=== PATIENT | male | born 1985 | race Caucasian/White ===

== ENCOUNTER 2020-10-25 10:14 | Inpatient (IN) ==
[2020-10-25] MEDS ORDERED: ALBUT/IPRATROP 3MG/0.5MG NEB 3 ML VIAL NEB STA (11:30)
--- NOTE | 2020-10-25 11:30 | XRay Report ---
SINGLE VIEW CHEST CLINICAL HISTORY: Atypical chest pain. Dyspnea FINDINGS: 2 AP, portable, upright chest radiographs are compared to chest x-ray and chest CT dated . The cardiomediastinal silhouette is unremarkable. The lungs appear hyperinflated, likely du e to good inspiratory result. No airspace consolidation or large pleural effusion is identified. No p neumothorax is seen. There are healed left posterior rib fractures. IMPRESSION: No active disease in the chest. ACT 112: Negative or not required by law. Electronically signed by: Ralph Linn M.D. 10/25/2020 11:28 AM
[2020-10-25 11:50] LABS: Basophils # (auto) 0.05 K/uL (0-0.2); Basophils % (auto) 0.6 %; Eosinophils # (auto) 0.02 K/uL (0-0.5); Eosinophils % (auto) 0.2 %; Hematocrit (blood only) 43.4 % (42-52); Hemoglobin 15.2 g/dL (14.0-18.0); Immature Granulocytes # (auto) 0.01 K/uL (0.00-0.02); Immature Granulocytes % (auto) 0.1 %; Lymphocytes # (auto) 2.35 K/uL (1.2-3.4); Mean Corpuscular Hemoglobin 30.6 pg (25-34); Mean Corpuscular Volume 87.5 fL (80-100); Mean Platelet Volume 10.4 fL (7.4-10.4); Monocytes # (auto) 0.38 K/uL (0.11-0.59); Monocytes % (auto) 4.4 %; Neutrophils # (auto) 5.89 K/uL (1.4-6.5); Neutrophils % (auto) 67.7 %; Platelet Count 269 K/uL (130-400); RDW Coefficient of Variation 12.4 % (11.5-14.5); RDW Standard Deviation 39.9 fL (36.4-46.3); Red Blood Count 4.96 M/uL (4.7-6.1)
[2020-10-25 12:17] LABS: Albumin Level 4.9 gm/dl (3.4-5.0); BUN Creatinine Ratio 9.7 (10-20); Calcium 9.2 mg/dl (8.5-10.1); Creatinine Clr Calc Pharmacy 90.9 ml/min; Est GFR (African American) 95.7 ml/min; Est GFR (Non-African American) 82.6 ml/min; Potassium 3.5 mmol/L (3.5-5.1)
[2020-10-25 12:45] LABS: Albumin Globulin Ratio 1.4 (0.9-2); Bilirubin,Total 0.8 mg/dl (0.2-1); Globulin 3.5 gm/dl (2.5-4.0); Total Protein 8.4 gm/dl (6.4-8.2); Troponin I 0.367 ng/ml (0-0.045)
[2020-10-25 12:55] LABS: Partial Thromboplastin Time 26.2 Seconds (21.0-31.0); Prothrombin Time 10.6 Seconds (9.0-12.0)
[2020-10-25] MEDS ORDERED: ASPIRIN CHEW 324 MG PO STA (13:03)
[2020-10-25] MEDS ORDERED: NICOTINE 14 MG/24 HR PATCH TD STA (13:28)
--- NOTE | 2020-10-25 13:47 | History & Physical Report ---
Date of Service October 25, 2020 Assessment & Plan (1) Elevated troponin I level: Plan: Elevated troponin- The patient will be admitted to telemetry for serial cardiac enzymes, serial EKG's, cardiac rhythm monitoring and a 2-D echocardiogram with Dopplers. Troponin 0.367 upon admission Received aspirin 324 mg in the ED Cardiology consult pending (2) Tobacco abuse: Plan: Cessation counseling (3) Methadone dependence: Plan: Awaiting pharmacy verification of dosing of methadone 82 mg daily History of Present Illness Chief Complaint: The patient presents to the emergency department with acute onset of chest tightness rating to his left arm while at work this morning Primary Care Provider: NO PCP The patient is a 35-year-old male with a past medical history including methadone dependence, and tobacco abuse, who presents to the emergency department with acute development of chest tightness rating 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 In the emergency department, work-up included a normal chest x-ray, and EKG with normal sinus rhythm at [address]-T changes, and a troponin of 0.367. Interventions in the emergency department included aspirin 324 mg p.o. x1, and a DuoNeb Allergies Allergy/AdvReac Type Severity Reaction Status Date / Time No Known Allergies Allergy Unverified 10/25/20 11:39 Home Medications Medication Instructions Recorded Confirmed Type Jet-Alert 1 cap PO UD PRN 10/25/20 10/25/20 History methadone 10 mg/mL oral concentrate 82 mg PO DAILY 10/25/20 10/25/20 History Past Med/Surg History Social History Smoking Status: Current every day smoker Tobacco Type: Cigarettes Feels Safe at Home: Yes Review of Systems Review of Systems: The patient denies chest pain, palpitations, cough, lower extremity swelling, sore throat, fevers, chills, sweats, weight change, fatigue, nausea, vomiting, diarrhea , constipation, abdominal pain, pelvic pain, blood in urine or stool, dysuria, urinary frequency or urgency, lightheadedness, dizziness, headache, memory loss, loss of consciousness, rash, abnormal bruising or bleeding, imbalance, focal or generalized weakness, numbness or tingling in right arm or bilateral legs, generalized arthralgias or myalgias, back or neck pain, or night sweats. The review of systems is otherwise negative other than for that already noted above, and at least 10 systems have been reviewed. Physical Exam Physical Exam: The patient is awake, alert and oriented 3, well developed and well nourished, normocephalic and atraumatic, lying in bed and in no acute distress. HEENT--PERRL, EOMI, mucous membranes and oropharynx dry. Neck--supple. No JVD. No bruits. Thyroid normal, trachea midline, no adenopat hy. Heart--normal S1 and S2. No murmurs, rubs or gallops. Lungs--clear bilaterally, no respiratory distress, no accessory muscle use. Abdomen--normal bowel sounds and soft. Nontender. Nondistended, no hernias or masses, no organomegaly. Extremities--no cyanosis or clubbing. No edema. There are good distal pulses b/l. Dermatologic--normal skin turgor, normal color, no abnormal lymph nodes, no yarely h. Neurologic--cranial nerves II through XII grossly intact. Rheumatologic--normal range of motion. Psychiatric--normal affect. Results & Data Results & Data ([facility]) Vital Signs (Past 12 Hours) Vital Signs Temp Pulse Pulse Resp BP BP Pulse Ox 10/25/20 13:16 82 17 136/88 100 10/25/20 13:00 88 19 146/89 H 100 10/25/20 11:48 83 16 97 10/25/20 11:31 77 19 142/87 H 100 10/25/20 10:20 98.8 F 91 H 20 148/83 H 100 Laboratory Results Laboratory Results WBC 8.70 K/uL (4.8-10.8) 10/25/20 11:30 RBC 4.96 M/uL (4.7-6.1) 10/25/20 11:30 Hgb 15.2 g/dL (14.0-18.0) 10/25/20 11:30 Hct 43.4 % (42-52) 10/25/20 11:30 MCV 87.5 fL (80-100) 10/25/20 11:30 MCH 30.6 pg (25-34) 10/25/20 11:30 MCHC 35.0 g/dL (32-36) 10/25/20 11:30 RDW Std Deviation 39.9 fL (36.4-46.3) 10/25/20 11:30 RDW Coeff of Thais 12.4 % (11.5-14.5) 10/25/20 11:30 Plt Count 269 K/uL (130-400) 10/25/20 11:30 MPV 10.4 fL (7.4-10.4) 10/25/20 11:30 Immature Gran % (Auto) 0.1 % 10/25/20 11: Neut % (Auto) 67.7 % 10/25/20 11:30 Lymph % (Auto) 27.0 % 10/25/20 11:30 [place] % (Auto) 4.4 % 10/25/20 11:30 Eos % (Auto) 0.2 % 10/25/20 11:30 Baso % (Auto) 0.6 % 10/25/20 11: Neut # (Auto) 5.89 K/uL (1.4-6.5) 10/25/20 11:30 Lymph # (Auto) 2.35 K/uL (1.2-3.4) 10/25/20 11:30 [place] # (Auto) 0.38 K/uL (0.11-0.59) 10/25/20 11:30 Eos # (Auto) 0.02 K/uL (0-0.5) 10/25/20 11:30 Baso # (Auto) 0.05 K/uL (0-0.2) 10/25/20 11: Immature Gran # (Auto) 0.01 K/uL (0.00-0.02) 10/25/20 11:30 PT 10.6 Seconds (9.0-12.0) 10/25/20 12:32 INR 1.0 (0.9-1.1) 10/25/20 12:32 APTT 26.2 Seconds (21.0-31.0) 10/25/20 12:32 PTT Ratio 1.0 10/25/20 12:32 Sodium 137 mmol/L (136-145) 10/25/20 11:30 Potassium 3.5 mmol/L (3.5-5.1) 10/25/20 11:30 Chloride 107 mmol/L (98-107) 10/25/20 11:30 Carbon Dioxide 28 mmol/L (21-32) 10/25/20 11:30 Anion Gap 2.0 (3-11) L 10/25/20 11:30 BUN 11 mg/dl (7-18) 10/25/20 11:30 Creatinine 1.15 mg/dl (0.6-1.4) 10/25/20 11:30 Est Cr Clr Drug Dosing 90.9 ml/min 10/25/20 11:30 Est GFR ( Amer) 95.7 ml/min 10/25/20 11:30 Est GFR (Non-Af Amer) 82.6 ml/min 10/25/20 11:30 BUN/Creatinine Ratio 9.7 (10-20) L 10/25/20 11:30 Glucose 85 mg/dl (70-99) 10/25/20 11:30 Calcium 9.2 mg/dl (8.5-10.1) 10/25/20 11:30 Total Bilirubin 0.8 mg/dl (0.2-1) 10/25/20 11:30 AST 28 U/L (15-37) 10/25/20 11:30 ALT 35 U/L (12-78) 10/25/20 11:30 Alkaline Phosphatase 69 U/L (45-117) 10/25/20 11:30 Troponin I 0.367 ng/ml (0-0.045) H* 10/25/20 11:30 Total Protein 8.4 gm/dl (6.4-8.2) H 10/25/20 11:30 Albumin 4.9 gm/dl (3.4-5.0) 10/25/20 11:30 Globulin 3.5 gm/dl (2.5-4.0) 10/25/20 11:30 Albumin/Globulin Ratio 1.4 (0.9-2) 10/25/20 11:30 COVID-19 Eval Order Covid19 at [facility] 10/25/20 13:00 Impressions Chest X-Ray 10/25/20 10:23 SINGLE VIEW CHEST CLINICAL HISTORY: Atypical chest pain. Dyspnea FINDINGS: 2 AP, portable, upright chest radiographs are compared to chest x-ray and chest CT dated 03/06/2016. The cardiomediastinal silhouette is unremarkable. The lungs appear hyperinflated, likely due to good inspiratory result. No airspace consolidation or large pleural effusion is identified. No pneumothorax is seen. There are healed left posterior rib fractures. IMPRESSION: No active disease in the chest. ACT 112: Negative or not required by law. Electronically signed by: Ralph Linn M.D. 10/25/2020 11:28 AM ECG Additional Comments: HEIDI MOCTEZUMA ID:[id number] 25-OCT-2020 10:28:38 [facility]- EDSTAT ROUTINE RETRIEVAL Normal sinus rhythm Normal ECG When compared with ECG of 06-MAR-2016 10:47, No significant change was found 25mm/s 10mm/mV 150Hz 9.0.9 12SL 241 FARHEEN: 15 Referred by: ED Unconfirmed Vent. rate 91 BPM FL interval 142 ms QRS duration 104 ms QT/QTc 388/477 ms P-R-T axes 68 55 55 1985 (35 yr) Male 71in Room: Loc:15 Supervisory Historian:ADDY Duran in Code Status & VTE Plan Code Status Full code VTE Prophylaxis Plan VTE Prophylaxis will be ordered: Yes PG Care Time/CCT Total # of Minutes Spent Total Time Spent with Patient: Total time spent is greater than 50% in co ordination of care (as documented) at patient's floor/unit and/or counseling patient: Coding Level of Care Code 42926 Initial Inpt Care Lvl 2 Diagnoses Elevated troponin I level R77.8 Tobacco abuse Z72.0 Methadone dependence F11.20
[2020-10-25] MEDS ORDERED: NITROGLYCERIN SL 0.4 MG/TAB TAB SL PRN (15:19)
[2020-10-25] MEDS ORDERED: ACETAMINOPHEN 325 MG TAB PO PRN (15:19)
[2020-10-25] MEDS ORDERED: ONDANSETRON INJ 2 MG/ML 2 ML VIAL IV PRN (15:19)
--- NOTE | 2020-10-25 15:30 | Electrocardiogram Report ---
Test Reason : Blood Pressure : / mmHG Vent. Rate : 091 BPM Atrial Rate : 091 BPM P-R Int : 142 ms QRS Dur : 104 ms QT Int : 388 ms P-R-T Axes : 068 055 055 degrees QTc Int : 477 ms Normal sinus rhythm Possible old posterior infarct When compared with ECG of 06-MAR-2016 10:47, No significant change was found Confirmed by Kedar Alvarado ([id number]) on 10/25/2020 3:30:25 PM Referred By: ED Confirmed By:Pito Alvarado
[2020-10-25] MEDS: NSS + 20MEQ KCL 20 MEQ/1,000 ML BAG IV SCH (15:51)
--- NOTE | 2020-10-25 17:18 | Emergency Department Note ---
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 He was given a DuoNeb treatment as it was concerned that this may be pulmonary related from the chemical. His ECG was normal. His CBC and chemistry panel was unremarkable. Chest x-ray was negative. On reassessment the patient was feeling well. He had no pain or discomfort and was breathing normally. Vital signs were stable. Unfortunately patient's troponin did come back elevated. The patient will need further management in the hospital. The patient was educated. After discussion the patient did agree for admission. Consultation was made with Dr. Duane Hendrickson of the [facility] service. Patient was evaluated in the ER for further management. Patient was given aspirin. I did consult with cardiology, Dr. Alvarado and he agreed with the aspirin and medical work-up. Triage Nursing notes reviewed and agree them. Vital Signs: reviewed and remarkable for no significant abnormalities Differential diagnosis: Cardiac ischemia, aortic dissection, pulmonary embolism, pneumothorax, pneumonia, pericarditis, myocarditis, esophageal rupture, GERD, cholecystitis, pancreatitis, m usculoskeletal, as well as other pathologies. Diagnostics interpreted by me: ECG:Rate:91 Rhythm:Normal sinus [place]:Normal QRS:Normal ST segements:No elevation or depression Other:No PACs or PVCs Cardiac Monitoring: Cardiac monitoring ordered by me: The patient was placed on continuous cardiac monitoring and observed. It revealed a normal sinus rhythm at 90 beats per minute without ectopy or evidence of dysrhythmia. Imaging studies: Chest x-ray. Findings: A chest x-ray was performed and revealed no pneumothorax, effusion, infiltrate, pulmonary edema, free air under the diaphragm, or wide mediastinum. Impression: No acute disease. HPI: The patient is a [age] year old male who presents to the Emergency Room with complaints of left-sided chest pain. 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 The patient also notes the fo llowing associated symptoms, left arm pain, mild shortness of breath. The patient has taken no medication for relieving factors. Current pain is rated as zero/10. Patient does note a family history of cardiac disease. Patient does smoke. Patient has no personal history of cardiac disease. Pt denies LOC, headache, fevers, chills, diaphoresis, visual changes, neck pain, nausea, vomiting, abdominal pain, back pain, melena, hematochezia, urinary symptoms, numbness, weakness, lymphadenopathy, rash, or other complaints. ROS: See above HPI for pertinent positives & negatives. A total of 10 systems reviewed and were otherwise negative. PAST MEDICAL HISTORY:See Below , methadone dependence PAST SURGICAL HISTORY:See Below, FAMILY HISTORY:See Below SOCIAL HISTORY:See Below, smoker HOME MEDICATIONS:See Below ALLERGIES:See Below VITALS:See Below PHYSICAL EXAMINATION: GENERAL: Awake, alert, well-appearing, in no distress HENT: Normocephalic, atraumatic. Oropharynx unremarkable. EYES: Normal conjunctiva. Sclera non-icteric. NECK: Inspection normal. Non-tender. Supple. No nuchal rigidity. FROM. No masses. RESPIRATORY: Clear to auscultation. No wheezes. No rales. Normal respiratory effort. CARDIAC: Normal rate. Normal rhythm. No murmurs. No rubs. Extremities warm and well perfused. Pulses equal. No JVD. GI: Soft, non-distended. No tenderness to palpation. No rebound or guarding. No masses. RECTAL: Deferred. MUSCULOSKELETAL: Atraumatic. Chest examination reveals no tenderness. The back is symmetrical on inspection without obvious abnormality. There is no CVA tenderness to palpation. No joint edema. LOWER EXTREMITIES: Calves are equal size bilaterally and non-tender. No edema. No discoloration. NEURO: Normal sensorium. No sensory or motor deficits noted. SKIN: No rash or jaundice noted. Travis Ho MD Past Med/Surg History Social History Smoking Status: Current every day smoker Tobacco Type: Cigarettes Second Hand Exposure: Yes; Hx Alcohol Use: No Hx Substance Use: Yes Last Used Substance Other:: 2 years Preferred Language: Salvadorean Communication Ability: Effective Terminal Operations Manager Required: No Beliefs That Will Affect Care: None Current Living Situation: Significant Other Current Living Situation Comment: apartment single floor, 3 steps to enter Feels Safe at Home: Yes Assistive Devices: None Allergies Allergies Allergy/AdvReac Type Severity Reaction Status Date / Time No Known Allergies Allergy Unverified 10/25/20 11:39 Home Meds Home Medications Medication Instructions Recorded Confirmed Jet-Alert 1 cap PO UD PRN 10/25/20 10/25/20 methadone 10 mg/mL oral concentrate 82 mg PO DAILY 10/25/20 10/25/20 Results & Data (ED) Vital Signs Vital Signs - 24 hr 10/25/20 10:20 10/25/20 11:31 10/25/20 11:48 Temperature 37.1 C Temperature Source Temporal Artery Scan Pulse Rate 91 H Pulse Rate [Right] 77 83 Pulse Rate from SpO2 Sensor Pulse Rhythm [Right] Regular Pulse Strength [Right] Normal Respiratory Rate 20 19 16 Respiratory Effort / Characteristics Non-Labored Non-Labored Non-Labored Spontaneous Respiratory Depth Normal Normal Respiratory Pattern Regular Blood Pressure 148/83 H Blood Pressure [Left Arm] 142/87 H Blood Pressure Mean 104 Blood Pressure Mean [Left Arm] 105 Blood Pressure Position [Left Arm] Lying Pulse Oximetry 100 100 97 Oxygen Delivery Method Room Air Room Air Room Air Sepsis Recent Fever Within 48 Hours No Sepsis New/Unexplained Change in Mental Status N/A Sepsis Action Taken by Nursing No Action Required 10/25/20 13:00 10/25/20 13:15 10/25/20 13:16 Temperature Temperature Source Pulse Rate 89 Pulse Rate [Right] 88 82 Pulse Rate from SpO2 Sensor 90 Pulse Rhythm [Right] Regular Regular Pulse Strength [Right] Normal Normal Respiratory Rate 19 21 17 Respiratory Effort / Characteristics Non-Labored Non-Labored Respiratory Depth Normal Normal Respiratory Pattern Regular Regular Blood Pressure 136/88 Blood Pressure [Left Arm] 146/89 H 136/88 Blood Pressure Mean 104 Blood Pressure Mean [Left Arm] 108 104 Blood Pressure Position [Left Arm] Sitting Sitting Pulse Oximetry 100 99 100 Oxygen Delivery Method Room Air Room Air Room Air Sepsis Recent Fever Within 48 Hours Sepsis New/Unexplained Change in Mental Status Sepsis Action Taken by Nursing 10/25/20 13:30 Temperature Temperature Source Pulse Rate 83 Pulse Rate [Right] Pulse Rate from SpO2 Sensor 84 Pulse Rhythm [Right] Pulse Strength [Right] Respiratory Rate 19 Respiratory Effort / Characteristics Respiratory Depth Respiratory Pattern Blood Pressure 130/87 Blood Pressure [Left Arm] Blood Pressure Mean 101 Blood Pressure Mean [Left Arm] Blood Pressure Position [Left Arm] Pulse Oximetry 99 Oxygen Delivery Method Room Air Sepsis Recent Fever Within 48 Hours Sepsis New/Unexplained Change in Mental Status Sepsis Action Taken by Nursing Laboratory Data Result diagrams: 10/25/20 11:30 10/25/20 11:30 Lab Results 10/25/20 10/25/20 10/25/20 Range/Units 11:30 11:30 12:32 WBC 8.70 (4.8-10.8) K/uL RBC 4.96 (4.7-6.1) M/uL Hgb 15.2 (14.0-18.0) g/dL Hct 43.4 (42-52) % MCV 87.5 (80-100) fL MCH 30.6 (25-34) pg MCHC 35.0 (32-36) g/dL RDW Std Deviation 39.9 (36.4-46.3) fL RDW Coeff of Thais 12.4 (11.5-14.5) % Plt Count 269 (130-400) K/uL MPV 10.4 (7.4-10.4) fL Immature Gran % (Auto) 0.1 % Neut % (Auto) 67.7 % Lymph % (Auto) 27.0 % [place] % (Auto) 4.4 % Eos % (Auto) 0.2 % Baso % (Auto) 0.6 % Neut # (Auto) 5.89 (1.4-6.5) K/uL Lymph # (Auto) 2.35 (1.2-3.4) K/uL [place] # (Auto) 0.38 (0.11-0.59) K/uL Eos # (Auto) 0.02 (0-0.5) K/uL Baso # (Auto) 0.05 (0-0.2) K/uL Immature Gran # (Auto) 0.01 (0.00-0.02) K/uL PT 10.6 (9.0-12.0) Seconds INR 1.0 (0.9-1.1) APTT 26.2 (21.0-31.0) Seconds PTT Ratio 1.0 Sodium 137 (136-145) mmol/L Potassium 3.5 (3.5-5.1) mmol/L Chloride 107 (98-107) mmol/L Carbon Dioxide 28 (21-32) mmol/L Anion Gap 2.0 L (3-11) BUN 11 (7-18) mg/dl Creatinine 1.15 (0.6-1.4) mg/dl Est Cr Clr Drug Dosing 90.9 ml/min Est GFR ( Amer) 95.7 ml/min Est GFR (Non-Af Amer) 82.6 ml/min BUN/Creatinine Ratio 9.7 L (10-20) Glucose 85 (70-99) mg/dl Calcium 9.2 (8.5-10.1) mg/dl Total Bilirubin 0.8 (0.2-1) mg/dl AST 28 (15-37) U/L ALT 35 (12-78) U/L Alkaline Phosphatase 69 (45-117) U/L Troponin I 0.367 H* (0-0.045) ng/ml Total Protein 8.4 H (6.4-8.2) gm/dl Albumin 4.9 (3.4-5.0) gm/dl Globulin 3.5 (2.5-4.0) gm/dl Albumin/Globulin Ratio 1.4 (0.9-2) COVID-19 Eval Order SARS-CoV-2 (PCR) (Negative) 10/25/20 10/25/20 Range/Units 13:00 13:00 WBC (4.8-10.8) K/uL RBC (4.7-6.1) M/uL Hgb (14.0-18.0) g/dL Hct (42-52) % MCV (80-100) fL MCH (25-34) pg MCHC (32-36) g/dL RDW Std Deviation (36.4-46.3) fL RDW Coeff of Thais (11.5-14.5) % Plt Count (130-400) K/uL MPV (7.4-10.4) fL Immature Gran % (Auto) % Neut % (Auto) % Lymph % (Auto) % [place] % (Auto) % Eos % (Auto) % Baso % (Auto) % Neut # (Auto) (1.4-6.5) K/uL Lymph # (Auto) (1.2-3.4) K/uL [place] # (Auto) (0.11-0.59) K/uL Eos # (Auto) (0-0.5) K/uL Baso # (Auto) (0-0.2) K/uL Immature Gran # (Auto) (0.00-0.02) K/uL PT (9.0-12.0) Seconds INR (0.9-1.1) APTT (21.0-31.0) Seconds PTT Ratio Sodium (136-145) mmol/L Potassium (3.5-5.1) mmol/L Chloride (98-107) mmol/L Carbon Dioxide (21-32) mmol/L Anion Gap (3-11) BUN (7-18) mg/dl Creatinine (0.6-1.4) mg/dl Est Cr Clr Drug Dosing ml/min Est GFR ( Amer) ml/min Est GFR (Non-Af Amer) ml/min BUN/Creatinine Ratio (10-20) Glucose (70-99) mg/dl Calcium (8.5-10.1) mg/dl Total Bilirubin (0.2-1) mg/dl AST (15-37) U/L ALT (12-78) U/L Alkaline Phosphatase (45-117) U/L Troponin I (0-0.045) ng/ml Total Protein (6.4-8.2) gm/dl Albumin (3.4-5.0) gm/dl Globulin (2.5-4.0) gm/dl Albumin/Globulin Ratio (0.9-2) COVID-19 Eval Order Cov[address]19 at [facility] SARS-CoV-2 (PCR) NEGATIVE (Negative) Administered Medications Potassium Chloride/Sodium Chloride (Normal Saline W/20 Meq Kcl) 20 meq in 1,000 mls @ 80 mls/hr IV .[id number] DANIEL Stop: 11/24/20 15:29 Last Admin: 10/25/20 15:51 Dose: 80 mls/hr Documented by: [id number] Discontinued Medications Albuterol (Albut/Ipratrop 3mg/0.5mg Neb 3 Ml Vial) 3 ml NEB NOW STA Stop: 10/25/20 11:31 Last Admin: 10/25/20 11:47 Dose: 3 ml Documented by: [id number] Aspirin (Aspirin Chew 324 Mg) 324 mg PO NOW STA Stop: 10/25/20 13:04 Last Admin: 10/25/20 13:13 Dose: 324 mg Documented by: [id number] Nicotine (Nicotine 14 Mg/24 Hr Patch) 14 mg TD NOW STA Stop: 10/25/20 13:29 Last Admin: 10/25/20 13:40 Dose: 14 mg Documented by: [id number] Imaging Data Radiologist's Impression: Chest X-Ray 10/25/20 10:23 SINGLE VIEW CHEST CLINICAL HISTORY: Atypical chest pain. Dyspnea FINDINGS: 2 AP, portable, upright chest radiographs are compared to chest x-ray and chest CT dated 03/06/2016. The cardiomediastinal silhouette is unremarkable. The lungs appear hyperinflated, likely due to good inspiratory result. No airspace consolidation or large pleural effusion is identified. No pneumothorax is seen. There are healed left posterior rib fractures. IMPRESSION: No active disease in the chest. ACT 112: Negative or not required by law. Electronically signed by: Ralph Linn M.D. 10/25/2020 11:28 AM Discharge Plan Visit Data Chief Complaint: Shortness of Breath/Dyspnea Stated Complaint: SOB, PAIN IN L ARM, CHEST TIGHTNESS ED Provider: Travis Ho Discharge Problem: Left-sided chest pain, Elevated troponin Patient Disposition: Admitted As Inpatient Discharge Instructions Interventions: ED Discharge Assessment Last Done: 10/25/20 14:52
--- NOTE | 2020-10-25 17:42 | XCELERA ---
[id number]
[2020-10-25] MEDS ORDERED: ENOXAPARIN 80 MG/0.8 ML SYR SQ ONE (18:02)
[2020-10-25] MEDS ORDERED: CLOPIDOGREL BISULFATE 300 MG TAB PO ONE (18:06)
[2020-10-26] MEDS: NSS + 20MEQ KCL 20 MEQ/1,000 ML BAG IV SCH ×2 (04:26→17:35)
[2020-10-26 07:59] LABS: Basophils # (auto) 0.03 K/uL (0-0.2); Basophils % (auto) 0.5 %; Hematocrit (blood only) 39.1 % (42-52); Hemoglobin 13.7 g/dL (14.0-18.0); Immature Granulocytes # (auto) 0.01 K/uL (0.00-0.02); Immature Granulocytes % (auto) 0.2 %; Lymphocytes # (auto) 1.63 K/uL (1.2-3.4); Lymphocytes % (auto) 27.9 %; Mean Corpuscular Hemoglobin 30.9 pg (25-34); Mean Corpuscular Volume 88.1 fL (80-100); Monocytes # (auto) 0.34 K/uL (0.11-0.59); Monocytes % (auto) 5.8 %; Neutrophils # (auto) 3.84 K/uL (1.4-6.5); Neutrophils % (auto) 65.6 %; Platelet Count 239 K/uL (130-400); RDW Coefficient of Variation 12.3 % (11.5-14.5); RDW Standard Deviation 39.6 fL (36.4-46.3); Red Blood Count 4.44 M/uL (4.7-6.1); White Blood Count 5.85 K/uL (4.8-10.8)
--- NOTE | 2020-10-26 08:01 | Hospitalist Progress Note ---
Date of Service October 26, 2020 Assessment & Plan (1) Elevated troponin I level: Plan: Chest pain associated with pain in relation subsequently found to have a elevated troponin- Troponin 0.367 upon admission it peaked at 3.16 and reduced at 1.41 Received aspirin 324 mg in the ED Cardiology performed left heart cath with nonocclusive disease heparin was initiated prior to catheterization due to the rising troponin this was quickly discontinued. Patient currently with pending CT angiography to look for pulmonary [place] and aortic disease there are case reports that inhaling propellants may be associated with n stemi, although the case reports typically were with pts who had chronically abused this habit (2) Tobacco abuse: Plan: Cessation counseling, nicotine patch offered (3) Methadone dependence: Plan: Awaiting pharmacy verification of dosing of methadone 82 mg daily toxicology screen is only positive for methadone Admission and Anticipated Discharge Date Admission Date: October 25, 2020 Subjective Patient is having no additional chest pains for [place] cardiac cath today which was negative for occlusive disease pending CT the scan for PE and aortic changes Review of Systems Review of Systems: Review of systems is unremarkable for chest pain Mild distress and fatigue no headache, no visual changes no speech or swallowing issues no chest pain, pressure or palpitations no shortness of breath, cough or wheezes no abdominal pain, nausea or vomiting, diarrhea or constipation no dysuria, hematuria or frequency no focal joint pain or swelling no back pain, CVA tenderness or radicular pain no bruising, bleeding or rashes no focal signs of weakness or numbness or altered sensation no complaints of anxiety or depression.. Physical Exam Physical Exam: The patient appeared well nourished and normally developed. Vital signs as documented. Head exam is normocephalic atraumatic Neck is without JVD, thyromegaly, or carotid bruits. Lungs are clear to auscultation, no focal loss of breath sounds Cardiac exam, Rhythm is regular.. No murmurs, rubs or gallops. Abdominal exam reveals normal bowel sounds, soft non tender, no masses Extremities are nonedematous and both pedal pulses are present Neurologic exam is alert and oriented, no focal loss of strength or sensation Skin is without bruises or rashes Psychologically is without concerns for anxiety or depression Results & Data Results & Data ([facility]) Vital Signs (Past 12 Hours) Vital Signs Temp Pulse Pulse Resp BP Pulse Ox 10/26/20 07:27 76 10/26/20 03:35 98.1 F 92 H 16 124/78 98 10/25/20 23:53 98.4 F 87 12 117/84 97 10/25/20 22:20 73 PG Care Time/CCT Total # of Minutes Spent Total Time Spent with Patient: Total time spent is greater than 50% in coordination of care (as documented) at patient's floor/unit and/or counseling patient: Coding Level of Care Code 12226 Subseq Hosp Care Lvl 3 Diagnoses Elevated troponin I level R77.8 Tobacco abuse Z72.0 Methadone dependence F11.20
[2020-10-26] MEDS: CLOPIDOGREL BISULFATE 75 MG TAB PO SCH (08:22)
[2020-10-26] MEDS: METHADONE ORAL SOLN 2 MG/ML PO SCH (08:22)
[2020-10-26] MEDS: METHADONE PO SCH (08:23)
[2020-10-26 08:30] LABS: Albumin Level 3.8 gm/dl (3.4-5.0); BUN Creatinine Ratio 10.7 (10-20); Calcium 8.8 mg/dl (8.5-10.1); Creatinine Clr Calc Pharmacy 115.6 ml/min; Est GFR (African American) 130.5 ml/min; Est GFR (Non-African American) 112.6 ml/min; Magnesium 1.7 mg/dl (1.8-2.4); Potassium 3.9 mmol/L (3.5-5.1)
[2020-10-26 08:39] LABS: Albumin Globulin Ratio 1.2 (0.9-2); Bilirubin,Total 1.2 mg/dl (0.2-1); Globulin 3.2 gm/dl (2.5-4.0)
[2020-10-26] MEDS ORDERED: Heparin IV Adult Wt-Based Standard WITH Bolus Protocol IV STA (10:21)
[2020-10-26] MEDS ORDERED: HEPARIN 25000 UNIT/500 ML D5W IV ONE (10:30)
[2020-10-26] MEDS ORDERED: HEPARIN SOD (PORCINE) 1000 UNIT/ML IV STA (10:32)
[2020-10-26] MEDS ORDERED: HEPARIN SODIUM/DEXTROSE 25,000 UNITS/500 ML BAG IV SCH (10:45)
[2020-10-26 11:06] LABS: Chol HDL Ratio 6; Cholesterol 181 mg/dl (0-200); HDL Cholesterol 29 mg/dl; LDL Cholesterol Calculated 130 mg/dl; Triglycerides 108 mg/dl (0-150); VLDL Cholesterol 22 mg/dl
[2020-10-26 12:27] LABS: Amphetamines+Metham, Urine Neg (Neg); Barbiturates, Urine Neg (Neg); Benzodiazepine, Urine Neg (Neg); Cocaine, Urine Neg (Neg); MDMA (Ecstacy), Urine Neg (Neg); Methadone, Urine Pos (Neg); Opiate, Urine Neg (Neg); Phencyclidine, Urine Neg (Neg)
--- NOTE | 2020-10-26 14:00 | Electrocardiogram Report ---
Test Reason : Blood Pressure : / mmHG Vent. Rate : 091 BPM Atrial Rate : 091 BPM P-R Int : 146 ms QRS Dur : 096 ms QT Int : 384 ms P-R-T Axes : 067 050 053 degrees QTc Int : 472 ms Normal sinus rhythm Nonspecific ST abnormality When compared with ECG of 25-OCT-2020 10:28, No significant change was found Confirmed by Kedar Alvarado ([id number]) on 10/26/2020 2:00:09 PM Referred By: REFERRED SELF Confirmed By:Pito Alvarado
[2020-10-26] MEDS ORDERED: niCARdipine HCL INJ 2.5 MG/ML 10 ML AMP ONE (14:11)
[2020-10-26] MEDS ORDERED: HEPARIN (PORCINE) 1000 UNIT/ML 10 ML (CATH LAB USE ONLY) ONE (14:11)
[2020-10-26] MEDS ORDERED: MIDAZOLAM HCL 1 MG/ML 2ML VIAL ONE (14:12)
[2020-10-26] MEDS ORDERED: fentaNYL citrate 100 MCG/2 ML VIAL ONE (14:12)
[2020-10-26] MEDS ORDERED: NITROGLYCERIN/D5W 100MCG/ML 20ML SYR ONE (14:12)
--- NOTE | 2020-10-26 14:18 | Pre Anesthesia Assessment ---
Date of Service October 26, 2020 Pre Sedation Assessment Vital Signs Temp Pulse Pulse Resp BP BP BP 10/26/20 12:34 36.5 C 68 18 121/61 10/26/20 08:27 36.9 C 74 16 130/76 10/26/20 07:27 76 10/26/20 03:35 36.7 C 92 H 16 124/78 10/25/20 23:53 36.9 C 87 12 117/84 10/25/20 22:20 73 10/25/20 19:53 37.2 C 100 H 18 125/80 10/25/20 16:08 91 H 10/25/20 15:20 36.8 C 100 H 18 135/88 10/25/20 14:30 89 19 140/89 Pulse Ox 10/26/20 12:34 98 10/26/20 08:27 98 10/26/20 07:27 10/26/20 03:35 98 10/25/20 23:53 97 10/25/20 22:20 10/25/20 19:53 97 10/25/20 16:08 10/25/20 15:20 97 10/25/20 14:30 99 Cardiovascular + regular rate Respiratory + respiratory effort normal Pre-Sedation Airway Assessment Smoking Status: Current every day smoker Hx Sleep Apnea: No Hx Difficult Intubation: No Short, Thick Neck: No Thyromental Distance: > or= 3.5 Finger Breadths Oral Cavity: + Dental Abnormalities and + WNL Mallampati Class: III ASA: ASA3 Procedure Planning Contraindications for Sedation: none Current Medications Reviewed: Yes Notes The planned sedation has been discussed with the patient. Informed Consent was obtained. I have identified the patient, determined the appropriateness of sedation and have assessed the patient immediately prior to the procedure. All medicine(s) and interventions are by my order.
--- NOTE | 2020-10-26 15:04 | Post Anesthesia Assessment ---
Date of Service October 26, 2020 Post Sedation Assessment Vital Signs Temp Pulse Pulse Resp BP BP Pulse Ox 10/26/20 12:34 36.5 C 68 18 121/61 98 10/26/20 08:27 36.9 C 74 16 130/76 98 10/26/20 07:27 76 10/26/20 03:35 36.7 C 92 H 16 124/78 98 10/25/20 23:53 36.9 C 87 12 117/84 97 10/25/20 22:20 73 10/25/20 19:53 37.2 C 100 H 18 125/80 97 10/25/20 16:08 91 H 10/25/20 15:20 36.8 C 100 H 18 135/88 97 Recovery Score Activity: Moves 4 extremities Respiration: Deep Breath/Cough Circulation: +/-20% PreAnes Value Consciousness: Fully Awake Oxygen Saturation: > 92% On Room Air Discharge Sedation Level of Care: Fast Track Phase II Post Sedation Plan On clinical assessment, the patient appears to have tolerated the sedation without complications. Patient is recovering as anticipated. Patient will continue to be monitored by nursing and may be discharged when sedation discharge criteria are met per below protocol. Upon Completions of procedure up to 15 minutes continue every 5 minute vital signs and the P.A.R. score; then discharge to a Phase I or Fast Track to Phase II per the following guidelines: * Discharge Patient to appropriate Phase II area if PAR is 8 or greater or return to pre- procedure baseline. The post - procedure orders will be as directed. * If PAR score is less than 8 or not return to pre-procedure baseline then patient will follow Phase I monitoring till PAR is reached for Phase II. The Phase I may be done in procedure room or may call to secure a Phase I area. * If naloxone or flumazenil are used for reversal, hold in Phase I for continued monitoring from when last reversal dose was given for a minimum of 60 minutes or longer pending the nurse and/or physician discretion of patient condition before discharge to Phase II. Please call the Sedation Physician to re-evaluate and complete post-note for discharge to Phase II area. Do NOT discharge from procedure sedation or Phase 1 until post- sedation evaluation note is complete by procedure /sedation MD Sedation Discharge Instructions to be given to the patient at discharge to home.
[2020-10-26] MEDS ORDERED: OPTIRAY 320 125ml IV ONE (17:24)
--- NOTE | 2020-10-26 17:39 | CT Scan Report ---
CT ANGIOGRAM OF THE CHEST CLINICAL HISTORY: Dyspnea. Atypical chest pain. COMPARISON STUDY: Chest x-ray dated 10/25/2020. Chest CT dated 03/06/2016. TECHNIQUE: Following the IV administration of 116 cc of Optiray 320, CT angiogram of the chest was pe rformed from the upper abdomen to the thoracic inlet utilizing the pulmonary embolus protocol. Images are reviewed in the axial, sagittal, and coronal planes. 3-D MIPS images are created and assessed. I V contrast was administered without complication. A dose lowering technique was utilized adhering to the principles of ALARA. CT DOSE: 276.87 mGy.cm FINDINGS: Thyroid: Imaged portions of the thyroid gland are normal in size and attenuation. Thoracic aorta: The thoracic aorta is normal in caliber and demonstrates standard 3-vessel arch anato my. No dissection is seen. Pulmonary vasculature: The pulmonary trunk is normal in caliber. There are no filling defects identif ied in main, lobar, or segmental pulmonary branches to suggest pulmonary embolus. Heart: The heart is normal in size and without pericardial effusion. Lungs and pleural spaces: There is no airspace consolidation or pleural effusion. The trachea and sanjana tral airways are clear. Mild diffuse peribronchial thickening is noted. Mediastinum: There is no mediastinal lymphadenopathy. Devika: Clear. Axillae: There is no axillary lymphadenopathy. Upper abdomen: A 14 mm cyst is noted in the right lobe of liver. Partially visualized upper abdominal viscera is otherwise within normal limits. Skeletal structures: No lytic or blastic bony lesions are seen. IMPRESSION: 1. There is no evidence of pulmonary embolus in the main, lobar, or segmental pulmonary arteries. 2. There is no airspace consolidation or pleural effusion. 3. Mild diffuse peribronchial thickening suggests bronchitis/reactive airway disease. Clinical correl ation will be required. ACT 112: Negative or not required by law. Electronically signed by: Ralph Linn M.D. 10/26/2020 5:38 PM
--- NOTE | 2020-10-26 18:03 | Cardiology Consultation ---
Date of Consultation October 26, 2020 Assessment & Plan (1) Elevated troponin: Unclear etiology. The rise and fall of his biomarkers does suggest that the event reported resulted in some myocardial injury. No evidence of an acute coronary syndrome. No evidence of coronary dissection. Possibly coronary spasm? Possibly resolved thrombus or embolic event? His symptoms resolved after 10-15 minutes which is a very short time frame within which to have any myocardial damage. He did not describe symptoms consistent with myocarditis. There were no echocardiographic abnormalities. At this point I think we will screen him for aortic disease or thrombotic pulmonary disease. In the absence of any significant abnormality and resolution of the elevations in his biomarkers, he can likely be discharged with out additional testing or intervention. (2) Left-sided chest pain: History of Present Illness Reason for Consultation: Chest pain, elevated troponin Requesting Physician: Emeka Attending Physician: Yobany Randhawa MD History of Present Illness The patient is a 35-year-old gentleman without a known history of cardiac disease who presented to the emergency room for an episode of chest discomfort. 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 He began to experience some left arm and chest discomfort associated with some breathing difficulty. The symptoms lasted for approximately 10-15 minutes before resolving. However, based on the severity and nature of the symptoms he presented to the emergency room for evaluation. Patient was discovered to have an elevated troponin and admitted for observation. His symptoms have not recurred since admission. The patient states that he is an active individual. He does not have an exercise routine but is able to perform mild to moderate activity [facility] He denies symptoms of dyspnea or chest discomfort associated with that activity. He has not had similar symptoms in the past. He denies dizziness, lightheadedness, palpitations or syncope. No orthopnea. No lower extremity edema. 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 He does have some constipation associated with his methadone use. No diarrhea. No abdominal complaints. No recent fevers or chills. No muscle aches or pains. Physical Exam Physical Exam: The patient is alert and oriented. Mood and affect appeared normal. He answered all questions appropriately. HEENT: Pupils are equal and reactive to light and accommodation. Extraocular movements are intact. The sclerae are anicteric. Neuro: Cranial nerves intact Neck: Patient's neck is supple. He has palpable carotid pulses bilaterally without bruits on auscultation. There is no evidence of jugular venous d istention. The thyroid is not enlarged. Lungs: Clear to auscultation bilaterally. He has good air movement without use of accessory muscles. No rales wheezes or rhonchi. Cardiac: Heart demonstrates a regular rate and rhythm. Normal S1 and S2. No murmurs on examination. Pulses: The patient has palpable radial pulses bilaterally that are equal in intensity Extremities: There was no evidence of hypoperfusion. There is no cyanosis or clubbing. There is no edema. Skin: I did not appreciate any rashes on examination today. Results & Data ([facility]) Vital Signs (Past 12 Hours) Vital Signs Temp Pulse Pulse Resp BP Pulse Ox 10/26/20 16:58 72 16 124/88 98 10/26/20 16:14 67 16 113/74 96 10/26/20 15:44 68 16 115/87 96 10/26/20 15:25 36.9 C 68 16 117/88 97 10/26/20 15:15 65 18 124/68 95 10/26/20 15:00 75 18 116/83 98 10/26/20 12:34 36.5 C 68 18 121/61 98 10/26/20 08:27 36.9 C 74 16 130/76 98 10/26/20 07:27 76 Laboratory Results Abnormal Lab Results 10/26/20 10/26/20 10/26/20 00:39 07:41 07:41 WBC 5.85 RBC 4.44 L Hgb 13.7 L Hct 39.1 L MCV 88.1 MCH 30.9 MCHC 35.0 RDW Std Deviation 39.6 RDW Coeff of Thais 12.3 Plt Count 239 MPV 10.0 Immature Gran % (Auto) 0.2 Neut % (Auto) 65.6 Lymph % (Auto) 27.9 Highland % (Auto) 5.8 Eos % (Auto) 0.0 Baso % (Auto) 0.5 Neut # (Auto) 3.84 Lymph # (Auto) 1.63 Highland # (Auto) 0.34 Eos # (Auto) 0.00 Baso # (Auto) 0.03 Immature Gran # (Auto) 0.01 Sodium 141 Potassium 3.9 Chloride 110 H Carbon Dioxide 27 Anion Gap 3.0 BUN 9 Creatinine 0.87 Est Cr Clr Drug Dosing 115.6 Est GFR ( Amer) 130.5 Est GFR (Non-Af Amer) 112.6 BUN/Creatinine Ratio 10.7 Glucose 96 Calcium 8.8 Magnesium 1.7 L Total Bilirubin 1.2 H AST 27 ALT 28 Alkaline Phosphatase 58 Troponin I 3.160 H* Total Protein 7.0 Albumin 3.8 Globulin 3.2 Albumin/Globulin Ratio 1.2 Triglycerides Cholesterol LDL Cholesterol, Calc VLDL Cholesterol, Calc HDL Cholesterol Cholesterol/HDL Ratio Urine Opiates Screen Ur Methadone, Qual Urine Barbiturates Ur Phencyclidine (PCP) U Amphetamin/Meth Scrn MDMA (Ecstasy) Screen U Benzodiazepines Scrn Ur Cocaine Metabolite U Marijuana (THC) Screen 10/26/20 10/26/20 10/26/20 07:41 10:10 16:05 WBC RBC Hgb Hct MCV MCH MCHC RDW Std Deviation RDW Coeff of Thais Plt Count MPV Immature Gran % (Auto) Neut % (Auto) Lymph % (Auto) Highland % (Auto) Eos % (Auto) Baso % (Auto) Neut # (Auto) Lymph # (Auto) Highland # (Auto) Eos # (Auto) Baso # (Auto) Immature Gran # (Auto) Sodium Potassium Chloride Carbon Dioxide Anion Gap BUN Creatinine Est Cr Clr Drug Dosing Est GFR ( Amer) Est GFR (Non-Af Amer) BUN/Creatinine Ratio Glucose Calcium Magnesium Total Bilirubin AST ALT Alkaline Phosphatase Troponin I 1.410 H* Total Protein Albumin Globulin Albumin/Globulin Ratio Triglycerides 108 Cholesterol 181 LDL Cholesterol, Calc 130 VLDL Cholesterol, Calc 22 HDL Cholesterol 29 Cholesterol/HDL Ratio 6 Urine Opiates Screen Neg Ur Methadone, Qual Pos H Urine Barbiturates Neg Ur Phencyclidine (PCP) Neg U Amphetamin/Meth Scrn Neg MDMA (Ecstasy) Screen Neg U Benzodiazepines Scrn Neg Ur Cocaine Metabolite Neg U Marijuana (THC) Screen Neg Diagnostic Findings Echocardiogram performed yesterday was normal. Normal LV systolic function. No valvular heart disease. Normal wall motion. No pericardial effusion. Cardiac catheterization performed today revealed normal coronary arteries. No obstructive coronary disease or evidence of acute coronary syndrome. Normal left ventricular filling pressures. ECG Additional Comments: EKG at the time admission was normal. PG Care Time/CCT Total # of Minutes Spent Total Time Spent with Patient: Total time spent is greater than 50% in coordination of care (as documented) at patient's floor/unit and/or counseling patient: Coding Level of Care Code 93545 Office/OBS Consult Lvl 4 Diagnoses Elevated troponin R77.8 Left-sided chest pain R07.9
[2020-10-26] MEDS: NICOTINE 21 MG/24 HR TDSY TD SCH (18:07)
--- NOTE | 2020-10-26 18:09 | Cardiac Catheterization ---
[facility] Data: Obstetrics Gyn Cardiac Status Clinical evaluation leading to the procedure CAD Presenation: Non STEMI Diagnostic Physicians Name: Kedar Alvarado MD Closure Device Recommendations: Medical Therapy and/or Counseling Cardiac Cath Procedure Full Procedure Date October 26, 2020 Pre-Procedure Diagnosis Pre-Procedure Diagnosis: Non STEMI AUC Score AUC Score: 8 Post-Procedure Diagnosis Post-Procedure Diagnosis: Normal Coronary Arteries Procedure(s) Performed Procedure(s) Performed: Coronary Angiography and Left Heart Cath [employer] Kedar Alvarado MD Hearing Therapy Teacher(s) None Estimated Blood Loss Estimated Blood Loss: 10cc Medication(s) Medication(s): Fentanyl, Heparin, Lidocaine 1%, Nicardipine, Nitroglycerin and Versed Summary of Findings Procedure performed: Left heart catheterization, selective coronary angiography Staff key carrier: Kedar Alvarado MD Indication: The patient is a 35-year-old gentleman admitted with symptoms of chest discomfort and NSTEMI. Procedure in detail: The patient was informed the risks benefits alternatives to the intended procedure. He understood which proceed. He was taken to the cardiac catheterization suite in a fasting state. Conscious sedation was administered per protocol the patient was monitored electrocardiographically throughout today's procedure. The left radial area was prepped and draped in usual sterile fashion. This area was anesthetized using subcutaneous menstruation of lidocaine solution. The left radial artery was subsequently accessed using Seldinger technique and a sheath was placed over guidewire this site. The sheath was used facilitate passage of the cardiac catheters for selective coronary angiography and left heart catheterization. Images were obtained in multiple orthogonal views prior to removal of the catheter and sheath. Hemostasis was achieved at the access site using manual pressure. Patient tolerated procedure well. There were no immediate complications. Findings: Coronary angiography Left main: Left main coronary artery is normal in size and caliber and bifurcated into the left anterior descending and left circumflex artery. There were 2 diminutive ramus intermedius branches. No significant disease in the left main coronary distribution. Left anterior descending: Left anterior descending was a large transapical vessel. It produced a large 1st diagonal and medium 2nd diagonal branches. These were somewhat tortuous but there is no evidence of obstructive disease. Left circumflex: Left circumflex artery was a nondominant vessel. It produced a large 1st OM system which branched early in its course. It produced 2 additional OM branches. There is no significant disease in this vessel. Right coronary artery: The right coronary artery was a dominant vessel. It was medium-sized. It produced a PDA and a PLV branch. There is no disease in this vessel. Impression: Right dominant coronary system Normal left ventricular filling pressures No evidence of aortic stenosis No obstructive coronary disease Hemodynamics Rest Ao:: 107/78 mm Hg Final Ao: 109/78 mm of mercury LV: 109/0 mm of mercury Left ventricular end-diastolic pressure was 6 mm of mercury Recommendations Recommendations: Medical Therapy and/or Counseling Specimens Specimens: None Radiation Exposure (mGy) 317 Contrast (mls) Twenty Procedural Complication(s) None Disposition PCU I attest to the content of the Intraoperative Record and any orders documented therein. Any exceptions are noted below. [facility] Card Cath Procedure Codes Cardiac Catheterization Procedure 1: Cardiovascular Cath Procedures: 07877 Coronaries and LHC (+/-LV) Moderate Sedation Procedure 1: Sedation/Anesthesia: 31872 Mod Sedation by the same physician;Init15 Min Child Age 5 & Up Procedure 2: Sedation/Anesthesia: 46349 Mod Sedation by the same physician; Ea [id number] Minutes PG Care Time/CCT Total # of Minutes Spent Total Time Spent with Patient: Total time spent is greater than 50% in coordination of care (as documented) at patient's floor/unit and/or counseling patient:
[2020-10-27] MEDS: NSS + 20MEQ KCL 20 MEQ/1,000 ML BAG IV SCH (05:17)
[2020-10-27 07:10] LABS: Basophils # (auto) 0.03 K/uL (0-0.2); Basophils % (auto) 0.4 %; Eosinophils # (auto) 0.04 K/uL (0-0.5); Eosinophils % (auto) 0.6 %; Hematocrit (blood only) 42.3 % (42-52); Hemoglobin 14.8 g/dL (14.0-18.0); Immature Granulocytes # (auto) 0.01 K/uL (0.00-0.02); Immature Granulocytes % (auto) 0.1 %; Lymphocytes # (auto) 2.36 K/uL (1.2-3.4); Lymphocytes % (auto) 32.5 %; Mean Corpuscular Hemoglobin 30.8 pg (25-34); Mean Corpuscular Volume 88.1 fL (80-100); Mean Platelet Volume 10.4 fL (7.4-10.4); Monocytes # (auto) 0.32 K/uL (0.11-0.59); Monocytes % (auto) 4.4 %; Neutrophils # (auto) 4.51 K/uL (1.4-6.5); Platelet Count 247 K/uL (130-400); RDW Coefficient of Variation 12.3 % (11.5-14.5); RDW Standard Deviation 39.3 fL (36.4-46.3); White Blood Count 7.27 K/uL (4.8-10.8)
--- NOTE | 2020-10-27 07:21 | Discharge Summary ---
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 In the emergency department, work-up included a normal chest x-ray, and EKG with normal sinus rhythm at [address]-T changes, and a troponin of 0.367. Interventions in the emergency department included aspirin 324 mg p.o. x1, and a DuoNeb Principal Diagnosis NSTEMI Possibly secondary to inhale propellants at work Discharge Exam The patient appeared well Vital signs as documented. Lungs are clear to auscultation and appear unlabored Cardiac exam, Rhythm is regular.. No murmurs, rubs or gallops. Abdominal exam reveals normal bowel sounds, soft non tender, no masses Extremities are nonedematous and both pedal pulses are normal. Neurologic exam is alert and oriented, no focal loss of strength or sensation Skin is without bruises or rashes Psychologically is without concerns for anxiety or depression. Discharge Data Allergies Allergy/AdvReac Type Severity Reaction Status Date / Time No Known Allergies Allergy Unverified 10/25/20 11:39 Consultations 10/25/20 13:04 ED Decision to Admit Stat 10/25/20 15:19 Consult Cardiology Routine Procedures Performed Operation Date: 10/26/20 10:00 Actual Procedures s Cineradiography w/Routine Exam - Michael Alvarado MD p Cath, Left with Cors and Vent - Michael Alvarado MD Ordered Studies 10/26/20 06:39 CL Cath Imgs for PACS use only Routine 10/26/20 15:55 CT angio chest PE protocol Stat Hospital Course (1) Elevated troponin I level: Chest pain associated with pain in relation subsequently found to have a elevated troponin- Troponin 0.367 upon admission it peaked at 3.16 and reduced at 1.41 Received aspirin 324 mg in the ED Cardiology performed left heart cath with nonocclusive disease heparin was initiated prior to catheterization due to the rising troponin this was quickly discontinued. Patient currently with pending CT angiography of the chest negative for pulmonary embolism or other abnormalities there are case reports that inhaling propellants may be associated with n stemi, although the case reports typically were with pts who had chronically abused this habit (2) Tobacco abuse: Cessation counseling, nicotine patch or gum recommend as an outpatient (3) Methadone dependence: methadone 82 mg daily toxicology screen is only positive for methadone Total Time Total Time Spent Total Time Spent (In Minutes): It required less than 30 minutes to prepare this patient for discharge Discharge Plan Discharge Items Patient Disposition: Home - Self-Care Reason For Visit: ELEVATED TROPONIN Discharge Diagnosis: mild heart irritation likely due to inhaled propellants from paint Activity: Resume your previous activity Non-emergency contact: Primary Care Provider Call non-emergency contact if: you have any medication questions Follow-up/Referrals: PCP,NO [Primary Care Provider] - Diet: Regular Addtl Attending Provider Instructions: please discuss with your employer about providing respirators and better ventilation when using the paint at work please see a primary care doctor Pending Studies at Discharge: No Stand-Alone Forms: [facility], Work/School Release, Smoking Cessation Medications and DC Order Prescriptions: Continued methadone 10 mg/mL Concentrate 82 mg PO DAILY RF: 0 Discontinued Jet-Alert 1 cap PO UD PRN (Reason: energy) RF: 0 Discharge Orders: Discharge Order (Routine); Ordered 10/27/20 Ordered By: Yobany Randhawa Admission Data Admit Date/Time: 10/25/20 13:36 Attending Provider: Yobany Randhawa Admit Provider: Duane Hendrickson Primary Care Provider: PCP,NO Other Providers: Duane Hendrickson ; Michael Alvarado Other Interventions: Discharge Summary Assessment (RN) Last Done: 10/27/20 07:13 Coding Level of Care Code D/C DAY MANAGEMENT <30 MINS Diagnoses Elevated troponin I level R77.8 Tobacco abuse Z72.0 Methadone dependence F11.20
[2020-10-27 07:43] LABS: Albumin Level 4.3 gm/dl (3.4-5.0); BUN Creatinine Ratio 8.9 (10-20); Calcium 9.3 mg/dl (8.5-10.1); Creatinine Clr Calc Pharmacy 119.3 ml/min; Est GFR (African American) 131.1 ml/min; Est GFR (Non-African American) 113.1 ml/min; Magnesium 1.8 mg/dl (1.8-2.4); Potassium 3.9 mmol/L (3.5-5.1)
[2020-10-27 07:46] LABS: Albumin Globulin Ratio 1.2 (0.9-2); Bilirubin,Total 1.4 mg/dl (0.2-1); Globulin 3.5 gm/dl (2.5-4.0); Total Protein 7.8 gm/dl (6.4-8.2)
[2020-10-27] MEDS: CLOPIDOGREL BISULFATE 75 MG TAB PO SCH (08:04)
[2020-10-27] MEDS: METHADONE ORAL SOLN 2 MG/ML PO SCH (08:04)
[2020-10-27] MEDS: NICOTINE 21 MG/24 HR TDSY TD SCH (08:05)
[2020-10-27] MEDS: METHADONE PO SCH (08:05)
--- NOTE | 2020-10-27 13:22 | Electrocardiogram Report ---
Test Reason : Blood Pressure : / mmHG Vent. Rate : 077 BPM Atrial Rate : 077 BPM P-R Int : 134 ms QRS Dur : 098 ms QT Int : 414 ms P-R-T Axes : 068 058 057 degrees QTc Int : 468 ms Normal sinus rhythm with sinus arrhythmia Normal ECG When compared with ECG of 26-OCT-2020 05:49, No significant change was found Confirmed by Kedar Alvarado ([id number]) on 10/27/2020 1:22:10 PM Referred By: REFERRED SELF Confirmed By:Pito Alvarado
[2020-10-28 08:21] LABS: Methadone, Ur Metabolite 8360 ng/mL (<100)
== END 2020-10-27 10:55 | disposition home or self-care (01) | DRG 917 ==
LOC: ED 10:14 → 2S 13:36 → SUATTDRO 13:36 → 2S 14:52